=== PATIENT | female | born 1935 | race Caucasian/White ===

== ENCOUNTER 2017-05-28 05:26 | Emergency (ER) | payer MEDICARE, BC ==
[~2017-05-28] VITALS: Ht 167.6 cm; Wt 39.5 kg
[~2017-05-28 05:26] MED LIST: ANTI14DR4 BOTH EARS
[2017-05-28 05:27] VITALS: Ht 167.6 cm; Wt 39.5 kg
--- NOTE | 2017-05-28 06:21 | ERD ---
ER Documentation Chief Complaint Date/Time DATE: 05/28/17 TIME: 06:20 Chief Complaint both ear pain HPI Patient is an 82-year-old female who presents with bilateral ear pain and she states she has had for several months. She believes it is secondary to cerumen impaction as she has had this before and has had good relief of her symptoms with irrigation. Denies any fever. Denies any cough. Denies any nausea or vomiting. Denies any headache or dizziness. Denies any chest pain or shortness of breath. Denies any changes to her vision. Denies any bleeding or drainage from the ear. ROS All systems reviewed and are negative except as per history of present illness. Medications Home Meds Active Scripts Antipyrine-Benzocaine* (Antipyrine-Benzocaine*) 5.4%-1.4% 14 Ml Otic Drops, 5 DROP BOTH EARS Q2H Y for cerumen, #1 EA Prov:BRI FRAZIER C 06/14/15 Allergies Allergies: Uncoded Allergies: PENICILIN (Allergy, Unknown, 06/14/15) PMhx/Soc History of Surgery: No Anesthesia Reaction: No Hx Neurological Disorder: No Hx Respiratory Disorders: No Hx Cardiac Disorders: No Hx Psychiatric Problems: No Hx Miscellaneous Medical Probl: No Hx Alcohol Use: No Hx Substance Use: No Hx Tobacco Use: No FmHx Family History: No diabetes Physical Exam Vitals Vital Signs Date Time Temp Pulse Resp B/P Pulse Ox O2 Delivery O2 Flow Rate FiO2 05/28/17 05:27 97.6 101 20 113/53 97 Physical Exam INITIAL VITAL SIGNS: Reviewed by me GENERAL: Awake, alert and oriented x 4, well appearing, nontoxic, speaking in full sentences. No acute distress HEAD: Atraumatic EYES: EOMI. PERRL. EAR: No tenderness over the mastoids bilaterally. Bilateral tympanic membranes unable to be visualized secondary to cerumen impaction NOSE: Normal nose. THROAT: No tonilar erythema or edema. No exudates. Uvula midline. No kissing tonsils. NECK: Supple. No masses. Full range of motion. No meningismus. No midline tenderness. RESPIRATORY: Clear to auscultation bilaterally. Symmetric chest wall rise. No wheezing or rales. No accessory muscle use. CV: Regular rate and rhythm. No murmurs, rubs, or gallops. Procedures/MDM 82-year-old female presents with cerumen impaction. She has had these symptoms in the past and has had relief of her symptoms with irrigation. She is otherwise well-appearing in no distress and her examination is otherwise normal. Irrigation of the bilateral ears was performed and that she is safely discharged home. Patient counseled regarding my diagnostic impression and care plan. Prior to discharge all questions answered. Pt agrees with treatment plan and understands strict return precautions. Pt is instructed to follow up with primary care provider within 24-48 hours. Precautionary instructions provided including instructions to return to the ER if not improving or for any worsening or changing symptoms or concerns. Departure Diagnosis: Primary Impression: Cerumen impaction Condition: Stable CÉSAR CASTRO PA-C May 28, 2017 06:21
[2017-05-28] MEDS ORDERED: CARB15DR50 BOTH EARS (08:12)
== END 2017-05-28 08:16 | disposition home or self-care (01) ==
LOC: FTE 05:26
DX: H61.23 Impacted cerumen, bilateral (principal)

== ENCOUNTER 2017-06-05 09:43 | Emergency (ER) | payer MEDICARE, BC ==
[~2017-06-05] VITALS: Ht 157.5 cm; Wt 38.0 kg
[~2017-06-05 09:43] MED LIST changes: +CARB15DR50 BOTH EARS
[2017-06-05 09:49] VITALS: Ht 157.5 cm; Wt 38.0 kg
[2017-06-05] MEDS ORDERED: SOD CHLORIDE 0.9% 1,000 ML IV STA (10:12)
[2017-06-05] MEDS ORDERED: ONDANSETRON (ODT) 4 MG TAB ODT STA (10:37)
[2017-06-05 10:54] LABS: BASOPHILS % 0.7 % (0.0-2.0); EOSINOPHILS # 0.1 10^3/ul (0.0-0.5); EOSINOPHILS % 0.8 % (0.0-7.0); HEMATOCRIT 43.4 % (37.0-47.0); LYMPHOCYTES # 1.4 10^3/ul (0.8-2.9); LYMPHOCYTES % 22.9 % (15.0-51.0); MEAN CORPUSCULAR HEMOGLOBIN 30.6 pg (29.0-33.0); MEAN CORPUSCULAR HGB CONC 32.3 g/dl (32.0-37.0); MEAN CORPUSCULAR VOLUME 94.8 fl (82.0-101.0); MONOCYTE # 0.6 10^3/ul (0.3-0.9); MONOCYTES % 10.2 % (0.0-11.0); NEUTROPHIL # 3.9 10^3/ul (1.6-7.5); NEUTROPHILS % 65.2 % (39.0-77.0); PLATELET COUNT 183 10^3/UL (140-415); RED BLOOD COUNT 4.58 10^6/ul (4.20-5.40); RED CELL DISTRIBUTION WIDTH 13.3 % (11.5-14.5); WHITE BLOOD COUNT 5.9 10^3/ul (4.8-10.8)
--- NOTE | 2017-06-05 10:58 | RADRPT ---
PROCEDURE: CT Head without intravenous contrast CLINICAL INDICATION: Possible Stroke. COMPARISON: None relevant listed. TECHNIQUE: Axial CT images from skull base to vertex with coronal and sagittal reformats. DOSE: The estimated administered radiation dose was CTDI vol = 45 mGy. DLP = 630 mGy-cm. One or mor e of the following dose reduction techniques were used: automated exposure control, adjustment of th e mA and/or kV according to patient size, or use of iterative reconstruction. FINDINGS: Parenchyma: No acute hemorrhage, large territorial infarction, or mass. Mild amount of periventricul ar and subcortical white matter hypodensity, a nonspecific finding often associated with chronic christ roangiopathy. Ventricles: No ventriculomegaly or ventricular effacement. Mild generalized volume with proportionat e ex vacuo ventricular dilation. Extra-axial spaces: No herniation or midline shift. Paranasal sinuses: Clear. Mastoids and middle ears: Clear. Visualized orbits: Normal. Vessels: No calcified atherosclerotic arterial plaque identified. Bones: Normal. Extracranial soft tissues: Normal. Additional comment: None. IMPRESSION: 1. No acute hemorrhage or large territorial infarction. 2. Chronic senescent findings characterized by volume loss and white matter changes. RPTAT: PP Physician Malcolm Date Time Electronically viewed and signed by Physician Malcolm on 06/05/2017 10:58 LG/
[2017-06-05] MEDS ORDERED: MECLIZINE 12.5 MG TAB PO ONE (11:00)
[2017-06-05 11:13] LABS: INR 0.95; PROTIME 12.7 Sec (12.2-14.2)
[2017-06-05 11:14] LABS: PARTIAL THROMBOPLASTIN TIME 32.9 Sec (25.0-35.0)
[2017-06-05 11:16] LABS: ANION GAP 20 (8-16); BLOOD UREA NITROGEN 27 mg/dl (7-20); CALCIUM 10.5 mg/dl (8.4-10.2); CARBON DIOXIDE 35 mmol/L (21-31); CHLORIDE 92 mmol/L (97-110); CREATININE 1.13 mg/dl (0.44-1.00); GLUCOSE 95 mg/dl (70-220); POTASSIUM 4.5 mmol/L (3.5-5.1); SODIUM 142 mmol/L (135-144)
[2017-06-05 11:33] LABS: TROPONIN-I < 0.012 ng/ml (0.00-0.12)
--- NOTE | 2017-06-05 11:45 | RADRPT ---
PROCEDURE: XR Chest. CLINICAL INDICATION: Pain TECHNIQUE: Single frontal chest x-ray. COMPARISON: None. FINDINGS: The lungs are clear of acute infiltrates, edema, effusions, or masses. The lungs are hyperinflated.. The cardiomediastinal silhouette is unremarkable. The osseous structures are intact. IMPRESSION: No acute cardiopulmonary disease. Hyperinflation of lungs consistent with COPD. RPTAT: GG .Gavin Mack MD, MD Date Time Electronically viewed and signed by .Gavin Mack MD, on 06/05/2017 11:45 .L/
[2017-06-05] MEDS ORDERED: CARB15DR50 BOTH EARS (11:50)
--- NOTE | 2017-06-05 11:51 | ERD ---
ER Documentation Chief Complaint Date/Time DATE: 06/05/17 TIME: 11:51 Chief Complaint dizziness, nausea, poor apetite x 1 week HPI Patient is an 82-year-old female with no medical problems who presents with dizziness. She is complaining of left-sided ear pain and decreased hearing. She feels a ringing in her left ear. The pain is sharp in nature. She said that she has had this problem with earwax in the past because these symptoms. She was seen here a few days ago for the same and had irrigation done at that time. ROS All systems reviewed and are negative except as per history of present illness. Medications Home Meds Active Scripts Meclizine Hcl* (Antivert*) 12.5 Mg Tab, 25 MG PO BID Y for DIZZINESS, #12 TAB Prov:LAURY GAMING MD 06/05/17 Carbamide Peroxide* (Debrox*) 6.5% - 15 Ml Drops, 10 DROP BOTH EARS BID for 7 Days, BOTTLE Prov:GRISEL ROSENBAUM MD 06/05/17 Discontinued Scripts Carbamide Peroxide* (Debrox*) 6.5% - 15 Ml Drops, 10 DROP BOTH EARS BID, #1 BOTTLE Prov:CÉSAR CASTRO PA-C 05/28/17 Antipyrine-Benzocaine* (Antipyrine-Benzocaine*) 5.4%-1.4% 14 Ml Otic Drops, 5 DROP BOTH EARS Q2H Y for cerumen, #1 EA Prov:BRI FRAZIER 06/14/15 Allergies Allergies: Coded Allergies: Penicillins (Unverified Allergy, Unknown, DIZZY, 06/05/17) PMhx/Soc Medical and Surgical Hx: pt denies Medical Hx History of Surgery: No Anesthesia Reaction: No Hx Neurological Disorder: No Hx Respiratory Disorders: No Hx Cardiac Disorders: No Hx Psychiatric Problems: No Hx Miscellaneous Medical Probl: No Hx Alcohol Use: No Hx Substance Use: No Hx Tobacco Use: No Smoking Status: Never smoker FmHx Family History: diabetes Physical Exam Vitals Vital Signs Date Time Temp Pulse Resp B/P Pulse Ox O2 Delivery O2 Flow Rate FiO2 06/05/17 12:15 98.1 70 20 138/62 9 06/05/17 10:43 Nasal Cannula 2 06/05/17 09:49 98.1 127 20 110/54 9 Physical Exam Const: No acute distress Head: Atraumatic Eyes: Normal Conjunctiva ENT: Mild amount of wax in the bilateral ears without obvious impaction Neck: Full range of motion..~ No meningismus. Resp: Clear to auscultation bilaterally Cardio: Regular rate and rhythm, no murmurs Abd: Soft, non tender, non distended. Normal bowel sounds Skin: No petechiae or rashes Back: No midline or flank tenderness Ext: No cyanosis, or edema Neur: Awake and alert, cranial nerves II through XII intact, strength is 5 out of 5 in all 4 extremities Psych: Normal Mood and Affect Result Diagram: 06/05/17 1030 06/05/17 1030 Results 24 hrs Laboratory Tests Test 06/05/17 10:30 White Blood Count 5.910^3/ul Red Blood Count 4.5810^6/ul Hemoglobin 14.0g/dl Hematocrit 43.4% Mean Corpuscular Volume 94.8fl Mean Corpuscular Hemoglobin 30.6pg Mean Corpuscular Hemoglobin Concent 32.3g/dl Red Cell Distribution Width 13.3% Platelet Count 52098^3/UL Mean Platelet Volume 11.0fl Neutrophils % 65.2% Lymphocytes % 22.9% Monocytes % 10.2% Eosinophils % 0.8% Basophils % 0.7% Nucleated Red Blood Cells % 0.0/100WBC Neutrophils # 3.910^3/ul Lymphocytes # 1.410^3/ul Monocytes # 0.610^3/ul Eosinophils # 0.110^3/ul Basophils # 0.010^3/ul Nucleated Red Blood Cells # 0.010^3/ul Prothrombin Time 12.7Sec Prothrombin Time Ratio 1.0 INR International Normalized Ratio 0.95 Activated Partial Thromboplast Time 32.9Sec Sodium Level 142mmol/L Potassium Level 4.5mmol/L Chloride Level 92mmol/L Carbon Dioxide Level 35mmol/L Anion Gap 20 Blood Urea Nitrogen 27mg/dl Creatinine 1.13mg/dl Glucose Level 95mg/dl Hemoglobin A1c 5.5% Calcium Level 10.5mg/dl Troponin I < 0.012ng/ml Current Medications Medications (Trade) Dose Ordered Sig/Radha Route PRN Reason Start Time Stop Time Status Last Admin Dose Admin Sodium Chloride (NS) 1,000 ml @ 1,000 mls/hr Q1H STAT IV 06/05/17 10:12 06/05/17 11:11 DC 06/05/17 10:12 Meclizine HCl (Antivert) 25 mg ONCE ONCE PO 06/05/17 11:00 06/05/17 11:01 DC 06/05/17 11:21 Ondansetron HCl (Zofran Odt) 4 mg ONCE STAT ODT 06/05/17 10:37 06/05/17 10:38 DC 06/05/17 11:21 Procedures/MDM EKG read by me: Rate/Rhythm: Sinus tachycardia rate of 106 Intervals: Normal Impression: Sinus tachycardia without ischemia CT scan of the brain shows no acute process per radiology. Chest x-ray shows COPD changes but no acute normality per radiology. Patient is a 82-year-old female who presents with dizziness. She had a full workup including laboratory studies and CT scan of the brain which were basically negative. At this point this may be related to inner ear issues. I doubt acute stroke, intracranial mass, or intracranial hemorrhage. The patient will be discharged with prescription for meclizine and Debrox solution. The patient can return for any worsening symptoms. At this point believe outpatient management is appropriate but the patient will need close follow-up with her primary doctor within 24-48 hours. She can return sooner for any worsening symptoms. Departure Diagnosis: Primary Impression: Dizziness Condition: Fair Patient Instructions: Dizziness, Unk Cause Referrals: Your doctor Additional Instructions: Call your primary care doctor TOMORROW for an appointment during the next 1-2 days.See the doctor sooner or return here if your condition worsens before your appointment time. GRISEL ROSENBAUM MD Jun 05, 2017 11:51
[2017-06-05 12:15] VITALS: BP 138/62; PULSE 70; RESP 20; TEMP 98.1
[2017-06-05] MEDS ORDERED: MECL12.574 PO (12:17)
== END 2017-06-05 12:42 | disposition home or self-care (01) ==
LOC: E/R 09:43
DX: R42 Dizziness and giddiness (principal); R40.2252 Coma scale, best verbal response, oriented, at arrival to emergency department; R07.9 Chest pain, unspecified; R40.2142 Coma scale, eyes open, spontaneous, at arrival to emergency department; R40.2362 Coma scale, best motor response, obeys commands, at arrival to emergency department
CPT/HCPCS: 36415; 70450; 71010; 80048; 83036; 84484; 85025; 85610; 85730; 93005; 99285; J7030